=== PATIENT | female | born 1990 | race Caucasian/White ===

== ENCOUNTER 2022-07-08 05:30 | Outpatient (CLI) | payer OTHER, SELFPAY ==
[2022-07-08 05:38] VITALS: TEMP 37.1; BMI 26.7
[2022-07-08] MEDS: Lactated Ringers 1,000 ML 999 ML IV (05:40)
[2022-07-08 06:02] VITALS: BP 121/75; PULSE 78
[2022-07-08 06:02] LABS: Absolute Lymphocyte Count 1.72 X10^3/uL (0.83-4.51); Absolute Neutrophil Count 5.4 X10^3/uL (2.0-7.7); Basophil# 0.04 X10^3/uL; Basophil% 0.5 % (0-1); Eosinophil# 0.14 X10^3/uL; Eosinophils% 1.7 % (0-5); Hematocrit 36.2 % (37-47); Hemoglobin 11.6 g/dL (12.0-15.0); Lymphocyte # 1.72 X10^3/ul (0.83-4.51); Lymphocyte % 20.8 % (19-41); Mean Corpuscular Hgb 28.2 pg (27.0-32.0); Mean Corpuscular Volume 88.1 fL (81-99); Mean Platelet Vol. 10.4 fl (6.2-12.0); Monocyte# 0.91 X10^3/uL; NRBC Flagged by Analyzer 0 % (0-5); Neutrophil # 5.36 X10^3/uL (2.7-7.7); Platelet Count 193 K/mm3 (150-450); RBC Distribution Width CV 16.5 % (11.6-14.6); RBC Distribution Width SD 53.2 fl (35.1-43.9); Red Blood Count 4.11 M/mm3 (4.2-5.4); White Blood Count 8.3 K/mm3 (4.4-11.0)
--- NOTE | 2022-07-08 06:13 | HP.PCM_ITS ---
History and Physical Date of Admission: 07/08/22 32-year-old 1 para 0 with EDC of 08/04/2022 presents today complaining of vaginal bleeding. She woke up this morning and had some bright red blood on her sheets. She was very close to our hospital and arrived to labor and delivery to be evaluated. She denied any pain. She denied any watery discharge. She has not felt a lot of movement but she did just wake up at 5 AM feeling the gush. They do plan delivery at [facility] because of the placenta previa. She has not had any bleeding previous to this. Her has been fairly uncomplicated other than the placenta previa. Social history she denies any tobacco alcohol or drug use. Allergies: No known drug allergy Medications: vitamins, pantoprazole as needed Past medical history significant for antepartum anemia Surgical history: Tonsillectomy as a child Physical exam: Awake, alert, no acute distress Skin: Warm dry and intact, normal turgor, no rash Respiratory: No shortness of breath Abdomen: Soft, nondistended, nontender, gravid, size appropriate for gestational Extremities: Trace edema REED DIPPER: Normal external genitalia with some dried blood on her legs and vulva. Normal urethra. Normal anus. Normal introitus. Vagina with pink rugae. Cervix is smooth and nonfriable. Appears closed. There is a minimal amount of blood in the vault. No active bleeding from the cervical os. No clots. heart tones: Normal baseline, moderate variability, no decelerations. Tocometer shows some irritability but no regular contractions. Assessment & Plan Assessment/Plan (1) 36 weeks gestation of : PLAN: This note will act as her transport note as well. Patient has known placenta previa. Plan delivery in tertiary care center due to blood bank availability and also resources to help control hemorrhage available that are limited at our facility. Risk benefits and alternatives to transport the patient were discussed with the patient and her family and they desire to proceed. Discussed with her if she had active bleeding between now and when transport arrived, would proceed with section delivery locally. Patient given betamethasone IM x1 just now. Group B strep was done in the office earlier today and is pending. Rapid COVID test done. Labs, and history reviewed. Spoke w/ Dr. Mcguire who agrees to accept transport, transport is en route here. (2) Supervision of high risk , unspecified, third trimester: (3) Placenta previa with hemorrhage in third trimester:
[2022-07-08] MEDS: Betamethasone/Betamethasone 30 MG/5 ML Vial 12 MG IM (06:20)
[2022-07-08 07:00] LABS: Fibrinogen 460 mg/dl (203-444); Partial Thromboplast Time 26.5 Seconds (24.1-36.2); Prothrombin Time (Protime)PT. 12.7 SECONDS (11.7-14.9)
[2022-07-08 07:14] VITALS: BP 115/73; TEMP 37.2
[2022-07-08 07:15] VITALS: PULSE 83; O2SAT 98
== END 2022-07-08 08:20 | disposition short-term general hospital (02) ==
LOC: WPOUT 05:37 → WP 05:37
PROVIDERS: Visit Provider Obstetrics & Gynecology
DX: O44.13 Complete placenta previa with hemorrhage, third trimester (principal); Z3A.36 36 weeks gestation of pregnancy; O09.93 Supervision of high risk pregnancy, unspecified, third trimester
CPT/HCPCS: 96360; 36415; 59025; 59050; 85025; 85384; 85610; 85730; 86850; 86870; 86900; 86901; 87426; 96372; 99221; J7120; G0378; J0702